=== PATIENT | female | born 1960 | race Caucasian/White ===

== ENCOUNTER 2016-12-28 00:58 | Emergency (ER) | payer OTHER ==
[~2016-12-28] VITALS: Ht 154.9 cm; Wt 68.0 kg
[~2016-12-28 00:58] MED LIST: CYCL-319 PO; HYDR-906 PO
[2016-12-28 01:02] VITALS: Ht 154.9 cm; Wt 68.0 kg
[2016-12-28 02:03] LABS: URINE BLOOD (Dip) POC 2+ (NEGATIVE)
[2016-12-28] MEDS ORDERED: NITR-58 PO (02:07)
--- NOTE | 2016-12-28 02:09 | ERD ---
ER Documentation Chief Complaint Date/Time DATE: 12/28/16 TIME: 02:07 Chief Complaint Pelvic pain. Painful and frequent urination x4 days ago HPI Patient is a 56-year-old female who presents to the ED with dysuria and urgency and frequency 2 days. She denies fever or chills. She denies back pain. She denies abdominal pain or pelvic pain. Denies nausea, vomiting, diarrhea. She states that she has had UTIs in the past. And states that this is similar to this. Denies leg pain or swelling. No other complaints. ROS All systems reviewed and are negative except as per history of present illness. Medications Home Meds Active Scripts Nitrofurantoin Monohyd Macrocr* (Macrobid*) 100 Mg Capsr, 100 MG PO BID for 7 Days, CAP Prov:ADAM MONSON PA-C 12/28/16 Cyclobenzaprine Hcl* (Cyclobenzaprine Hcl*) 10 Mg Tablet, 10 MG PO TID, #15 TAB Prov:DOT BAKER DO 07/14/16 Hydrocodone/Acetaminophen ([place] 5-325 Tablet) 1 Each Tablet, 1 TAB PO Q6H Y for PAIN, #7 TAB Prov:DOT BAKER DO 07/14/16 Allergies Allergies: Coded Allergies: No Known Allergy (Verified , 01/26/15) PMhx/Soc History of Surgery: Yes (JOSIANE, LT KNEE, LT BREAST ) Anesthesia Reaction: No Hx Neurological Disorder: No Hx Respiratory Disorders: No Hx Cardiac Disorders: Yes (HTN, HEART ABNORMALITY ) Hx Psychiatric Problems: No Hx Miscellaneous Medical Probl: No Hx Alcohol Use: No Hx Substance Use: No Hx Tobacco Use: No Smoking Status: Never smoker FmHx Family History: No coronary disease, No diabetes, No other Physical Exam Vitals Vital Signs Date Time Temp Pulse Resp B/P Pulse Ox O2 Delivery O2 Flow Rate FiO2 12/28/16 01:02 97.1 68 20 170/78 100 Physical Exam GENERAL: Well-developed, well-nourished female. Appears in no acute distress. HEAD: Normocephalic, atraumatic. EYES: Pupils are equally reactive bilaterally. EOMs grossly intact. No conjunctival erythema. ENT: Moist mucous membranes. No uvula deviation. No kissing tonsils. No exudates. NECK: Supple. No lymphadenopathy or thyromegaly. No meningismus. negative kernig. negative brudinski. LUNG: Clear to auscultation bilaterally. No rhonchi, wheezing, rales or coarse breath sounds. HEART: Regular rate and rhythm. No murmurs, rubs or gallops. ABDOMEN: No scars, ecchymosis or rashes noted. Soft, nontender, and nondistended. Positive bowel sounds in all four quadrants. No rebound tenderness , no guarding. (-) McBurneys point tenderness. No CVA tenderness. BACK: No midline tenderness. Extremities: Equal pulses bilaterally. No peripheral clubbing, cyanosis or edema. No unilateral leg swelling. NEUROLOGIC: Alert and oriented. Moving all four extremities. 5/5 strength in all extremities. Normal speech. Steady gait. SKIN: Normal color. Warm and dry. No rashes or lesions. Capillary refill < 2 seconds Results 24 hrs Laboratory Tests Test 12/28/16 02:04 Bedside Urine pH (LAB) 5.5 Bedside Urine Protein (LAB) Negative Bedside Urine Glucose (UA) Negative Bedside Urine Ketones (LAB) Negative Bedside Urine Blood 2+ Bedside Urine Nitrite (LAB) Negative Bedside Urine Leukocyte Esterase (L 2+ Procedures/MDM ER COURSE: I kept the patient and/or family informed of laboratory and diagnostic imaging results throughout the emergency room course. MEDICAL DECISION MAKING: This is a 56-year-old female who presents with dysuria and urgency 2 days. Vital signs were reviewed. Patient is afebrile. Patient is not hypoxic. Patient 's urine shows 2+ leukocytes with no nitrites. Patient has cystitis. Low suspicion for ovarian torsion, PID, tuboovarian abscess, ectopic , bowel obstruction, pyelonephritis, appendicitis, cervicitis, septic , molar , HELLP syndrome, preeclampsia, eclampsia, placenta previa, placenta abruptia. Patient has slightly elevated blood pressure and has a history of hypertension. She states she is taking her medication. Patient does not show signs of hypertensive urgency, emergency or endorgan damage. I advised patient to follow-up with her primary care regarding better management of her hypertension. DISCHARGE: At this time, patient is stable for discharge and outpatient management with no new complaints during the ER course. Patient was sent home with Macrobid. Patient will be discharged home with instructions to recheck for new or worsening symptoms such as fever, nausea, weakness, LOC and to follow up with primary care in the next 1-2 days. Patient was advised to return to the ER for any new or worsening symptoms. Plan was discussed and patient and/or family understands and agrees. Home instructions were given. Departure Diagnosis: Primary Impression: Cystitis Condition: Stable Patient Instructions: Cystitis Additional Instructions: Call your primary care doctor TOMORROW for an appointment during the next 1-2 days.See the doctor sooner or return here if your condition worsens before your appointment time. ADAM MONSON PA-C Dec 28, 2016 02:09
== END 2016-12-28 02:27 | disposition home or self-care (01) ==
LOC: FTE 00:58
DX: N30.90 Cystitis, unspecified without hematuria (principal); I10 Essential (primary) hypertension
CPT/HCPCS: 81003; Z7502; 99283

== ENCOUNTER 2017-11-13 09:45 | Emergency (ER) | END 2017-11-13 13:37 | disposition home or self-care (01) ==

== ENCOUNTER 2018-01-08 12:03 | Day surgery (SDC) | END 2018-01-08 18:24 | disposition home or self-care (01) ==

== ENCOUNTER 2018-06-09 17:38 | Emergency (ER) | END 2018-06-09 21:50 | disposition home or self-care (01) ==

== ENCOUNTER 2018-06-17 04:34 | Emergency (ER) | END 2018-06-17 06:36 | disposition home or self-care (01) ==